=== PATIENT | male | born 1930 | race Caucasian/White ===

== ENCOUNTER 2017-06-09 12:28 | Inpatient (IN) | payer MEDICARE ==
[~2017-06-09] VITALS: Ht 180.3 cm; Wt 69.8 kg
[~2017-06-09 12:28] MED LIST: ADULT LOW DOSE81 MG PO; ALBUTEROL SULF8.5 GM INH; ASPIRIN EC325 MG PO; ASPIRIN EC81 MG PO; ATROVENT HFA12.9 GM INH; AZELASTINE137 MCG/0. NAS; CELEBREX200 MG PO; CETIRIZINE HCL10 MG PO; CLOBETASOL EMOL15 GM TOP; COUMADIN5 MG PO; DILTIAZEM HCL120 MG PO; DOXYCYCLINE HY100 MG PO; FLUNISOLIDE1 SPRAY; GABAPENTIN300 MG PO; IPRAT-ALBUT 0.5-3 ML INH; KLOR-CON 88 MEQ PO; LASIX20 MG PO; LEVAQUIN500 MG PO; METFORMIN HCL500 MG PO; MIRALAX17 GM PO; MUCINEX DM ER1 EAC1 PO; PERCOCET 5-3251 EACH PO; SYMBICORT 16010.2 GM INH; TRAMADOL HCL50 MG PO; TRIAMCINOLONE A15 GM TOP
[2017-06-09] MEDS ORDERED: K-TAB10 MEQ PO (12:46)
[2017-06-09] MEDS ORDERED: LASIX20 MG PO (12:46)
--- NOTE | 2017-06-10 07:36 | PREHP ---
[facility] [address] [place], [place] [address] Signed ADMISSION DATE: 06/09/2017 HISTORY OF PRESENT ILLNESS: The patient is an 87-year-old white male who lives at home alone, independently ambulatory with a walker. He is doing well apparently until earlier today. It sounds as if he was trying to sit into his rocker when he somehow missed his footing and he fell to his left side. He was unable to ambulate and his relatives apparently picked him up and as they did so, there is an obvious deformity to the left lower extremity and he was therefore brought to the emergency room. Evaluation at that time revealed a four-part intertrochanteric fracture on the left side. PAST MEDICAL HISTORY: Significant for a history of chronic myelogenous leukemia which appears to be fairly stable. CURRENT MEDICATIONS: Noted in the hospitalist's consult. ALLERGIES: His family indicates he has an allergy to penicillin, although it is not exactly clear when or what type of allergic reaction he may have had. REVIEW OF SYSTEMS: Present time, he complains of nothing, but pain in the left hip area. PHYSICAL EXAMINATION: GENERAL: He is a pleasant elderly male, in no acute distress. Comfortably lying in bed. HEAD, EARS, EYES, NOSE, AND THROAT: Seem unremarkable. NECK: Stiff, but seems to be consistent with age. CHEST: Clear. CARDIAC: Reveals a regular rhythm without gallops or murmurs. ABDOMEN: Benign. EXTREMITIES: Left leg is short and externally rotated. He has diminished pulses and diminished sensation in both lower extremities and there is a moderate dependent edema bilaterally. When asked to do so, he is able to move his toes on both feet equally well. LABORATORY DATA: His x-rays are reviewed and he has a four-part intertrochanteric on the left, displaced. I did discuss with his family and with him, our general recommendation for surgical stabilization with TFN nail. Also explained to them the potential risks of bleeding, Electronically Signed By: STARLA DUQUE MD 06/10/17 0736 PATIENT NAME: RONALD MOLINA PREOPERATIVE H&P DATE OF : 30 PHYSICIAN: STARLA DUQUE MD REPORT #: [id number] REPORT IS CONFIDENTIAL AND NOT TO BE RELEASED WITHOUT AUTHORIZATION [address] [address] Signed infection, and DVT. Also we reviewed with them the relatively risks associated with the hip fracture and the treatment of a hip fracture including the six-week mortality rate of about 20%, three month mortality rate of about 35% and the fact that he may well need placement after he is ready to be discharged from the hospital. Given his overall level of disability and debility, I warned them that returning home might be an unrealistic goal. After reviewing all potential risks and complications, they seem comfortable with proceeding. Starla Duque MD WFB/MODL /[id number] Electronically Signed By: STARLA DUQUE MD 06/10/17 0736 PATIENT NAME: RONALD MOLINA PREOPERATIVE H&P DATE OF : 30 PHYSICIAN: STARLA DUQUE MD REPORT #: [id number] REPORT IS CONFIDENTIAL AND NOT TO BE RELEASED WITHOUT AUTHORIZATION
--- NOTE | 2017-06-10 14:51 | EKG ---
[facility] [address] [facility] [place] [address] Signed Poor data quality Likely Sinus rhythm Minimal voltage criteria for LVH, may be normal variant Abnormal ECG When compared with ECG of 04-JUL-2016 17:25, Junctional rhythm has replaced Sinus rhythm Confirmed by DOUGLAS BAPTISTE MD ([id number]) on 06/10/2017 2:50:58 PM Electronically Signed By: DOUGLAS BAPTISTE MD 06/10/17 1451 PATIENT NAME: RONALD MOLINA Electrocardiogram DATE OF : 30 PHYSICIAN: DOUGLAS BAPTISTE MD REPORT #: [id number] REPORT IS CONFIDENTIAL AND NOT TO BE RELEASED WITHOUT AUTHORIZATION
--- NOTE | 2017-06-12 13:11 | OR ---
[facility] [address] [place], [place] [address] Signed DATE OF OPERATION: 06/11/2017 SURGEON: Jose Saleh MD PREOPERATIVE DIAGNOSIS: Four-part intertrochanteric fracture, left proximal femur. POSTOPERATIVE DIAGNOSIS: Four-part intertrochanteric fracture, left proximal femur. PROCEDURE: Fixation with intramedullary nail device. ANESTHESIA: General. SPECIMENS AND COMPLICATIONS: There were no specimens or complications. BLOOD LOSS: About 100. WHAT WAS DONE: The patient was taken to the operating room. After anesthesia was induced and the airway secured, the patient was transitioned to the fracture table and the fracture was reduced with longitudinal traction, neutral rotation. AP and lateral fluoroscopy confirmed good alignment and good position of the fracture fragments with some slight posterior displacement of the femoral shaft fragment. The patient was then prepped and draped in a routine sterile fashion. We made a small incision at the tip of the greater trochanter and through it, introduced the curved awl. We created a small defect in the tip of the greater trochanter and we then able to negotiate the guidewire down the femoral canal. In order to accomplish this, we did have to lift the distal fragment anteriorly, but it was easily accomplished. We then passed a 12 mm reamer followed by the large proximal reamer. We then placed an 11 x 130 degree nail and seated in the center position. It was locked proximally with 115 mm helical blade. We then engaged the locking mechanism in the luciano. We took the traction off the leg to allow it to compress and then secured it distally with a single screw. The wound was gently irrigated, closed in standard fashion and sterile dressings applied. The patient was awakened to the recovery room where he arrived in stable condition. Counts were correct and antibiotic protocols were followed. Electronically Signed By: JOSE SALEH MD 06/12/17 1311 PATIENT NAME: RONALD MOLINA OPERATIVE REPORT DATE OF : 30 PHYSICIAN: JOSE SALEH MD REPORT #: [id number] REPORT IS CONFIDENTIAL AND NOT TO BE RELEASED WITHOUT AUTHORIZATION [address] [place] [address] Signed MD DONELL Henson/MODL /[id number] Electronically Signed By: JOSE SALEH MD 06/12/17 1311 PATIENT NAME: RONALD MOLINA OPERATIVE REPORT DATE OF : 30 PHYSICIAN: JOSE SALEH MD REPORT #: [id number] REPORT IS CONFIDENTIAL AND NOT TO BE RELEASED WITHOUT AUTHORIZATION
--- NOTE | 2017-06-12 14:30 | EKG ---
[facility] [address] [facility] [place] [address] Signed Sinus tachycardia Nonspecific T wave abnormality Abnormal ECG When compared with ECG of 09-JUN-2017 13:27, Previous ECG has undetermined rhythm, needs review Nonspecific T wave abnormality, worse in Inferior leads Nonspecific T wave abnormality, worse in Anterolateral leads Confirmed by DOUGLAS BAPTISTE MD ([id number]) on 06/12/2017 2:30:15 PM Electronically Signed By: DOUGLAS BAPTISTE MD 06/12/17 1430 PATIENT NAME: RONALD MOLINA Electrocardiogram DATE OF : 30 PHYSICIAN: DOUGLAS BAPTISTE MD REPORT #: [id number] REPORT IS CONFIDENTIAL AND NOT TO BE RELEASED WITHOUT AUTHORIZATION
[2017-06-14] MEDS ORDERED: IPRAT-ALBUT 0.5-3 ML INH (09:49)
[2017-06-14] MEDS ORDERED: MAPAP500 M1 PO (09:50)
[2017-06-14] MEDS ORDERED: MORPHINE S100 MG/5 M SL (09:50)
[2017-06-14] MEDS ORDERED: DEEP SEA44 ML NAS (09:51)
[2017-06-14] MEDS ORDERED: ONDANSETRON ODT4 MG PO (09:51)
[2017-06-14] MEDS ORDERED: FLUTICASONE PRO16 GM NAS (09:51)
== END 2017-06-14 15:15 | DRG 480 ==
LOC: ED 12:28 → MS 14:08
PROVIDERS: ADMIT Orthopaedic Surgery
PROC: 0QS734Z Reposition Left Upper Femur with Internal Fixation Device, Percutaneous Approach (ICD-10-PCS; principal; 2017-06-11 09:00)
DX: S72.142A Displaced intertrochanteric fracture of left femur, initial encounter for closed fracture (principal); J96.21 Acute and chronic respiratory failure with hypoxia; J18.9 Pneumonia, unspecified organism; C91.10 Chronic lymphocytic leukemia of B-cell type not having achieved remission; J44.0 Chronic obstructive pulmonary disease with (acute) lower respiratory infection; J44.1 Chronic obstructive pulmonary disease with (acute) exacerbation; W07.XXXA Fall from chair, initial encounter; Z86.711 Personal history of pulmonary embolism; I10 Essential (primary) hypertension; H91.10 Presbycusis, unspecified ear; Z87.891 Personal history of nicotine dependence; Z88.0 Allergy status to penicillin
CPT/HCPCS: 01220; 36415; 36430; 71045; 73502; 80048; 80069; 80076; 81001; 83735; 83880; 85025; 85610; 85730; 86850; 86900; 86901; 86920; 87040; 87088; 93005; 93010; 94640; 94762; 97110; 97163; 97530; C1713; C1769; G8978; G8979; J0330; J0690; J0696; J1170; J1885; J1956; J2060; J2270; J2405; J2704; J3010; J7030; J7040; J7120; P9016